=== PATIENT | female | born 1955 | race Hispanic/Latino ===

== ENCOUNTER 2017-12-23 06:17 | Day surgery (SDC) | payer BC ==
[2017-12-19 08:01] VITALS: BMI 34.9
[2017-12-23] MEDS ORDERED: Lidocaine 2% Inj (20ml) ONE (06:47)
[2017-12-23] MEDS ORDERED: Midazolam 2 MG/2 ML VIAL ONE ×2 (06:47→07:18)
[2017-12-23] MEDS ORDERED: Phenylephrine 10 mg/ml Inj ONE (06:47)
[2017-12-23] MEDS ORDERED: Iodixanol 320 MG/ML 100 ML BOTTLE IV ONE (06:48)
[2017-12-23] MEDS ORDERED: Iodixanol 320 MG/ML 200 ML BOTTLE IV ONE (06:48)
[2017-12-23] MEDS ORDERED: Iohexol 350mgl/ml 50 ML ONE (06:48)
[2017-12-23] MEDS ORDERED: Nitroglycerin 50mg in D5W 0 MG/0 ML BOTTLE IV ONE (06:49)
[2017-12-23 07:09] LABS: BASO # 0.05 K/mm3 (0.0-2.0); BASO % 0.6 % (0.0-3.0); EOS # 0.1 (0.0-0.7); EOS % 1.5 % (1.5-5.0); GRAN # 4.02 (1.4-6.5); HEMOGLOBIN 13.9 g/dL (12.0-16.0); LYMPH # 3.1 (1.2-3.4); LYMPH % 39.6 % (22.0-35.0); MEAN CELL VOLUME 90.8 fl (80.0-105.0); MEAN CORPUSCULAR HEMOGLOBIN 29.9 pg (25.0-35.0); MEAN CORPUSCULAR HGB CONC 32.9 g/dl (31.0-37.0); MEAN PLATELET VOLUME 9.6 fl (7.0-11.0); MONO # 0.6 (0.1-0.6); MONO % 7.3 % (1.0-6.0); RBC 4.65 10^6/uL (3.5-6.1); RED CELL DISTRIBUTION WIDTH 13.1 % (11.5-14.5); WHITE BLOOD COUNT 7.9 10^3/ul (4.5-11.0)
[2017-12-23 07:17] LABS: BLOOD UREA NITROGEN 21 mg/dL (7-21); CALCIUM 9.9 mg/dL (8.4-10.5); GFR AFRICAN-AMERICAN > 60; GFR NON-AFRICAN AMERICAN > 60
[2017-12-23 07:20] LABS: INR 0.98 (0.93-1.08); PROTHROMBIN TIME 11.3 SECONDS (9.4-12.5)
[2017-12-23] MEDS ORDERED: Famotidine 20mg/50ml 20 MG/50 ML BAG IVPB ONE (07:32)
[2017-12-23] MEDS ORDERED: DiphenhydrAMINE 50 mg/ml Inj ONE (07:32)
[2017-12-23 08:03] VITALS: TEMP 97.4
[2017-12-23] MEDS ORDERED: Nitroglycerin 50mg in D5W 50 MG/250 ML BOTTLE IV ONE (08:45)
[2017-12-23] MEDS ORDERED: Sodium Chloride 0.9% 1,000 ML IV SCH (09:45)
--- NOTE | 2017-12-23 10:16 | CARDCATH ---
PROCEDURE DATE: 12/23/2017 HISTORY: The patient is a 62-year-old woman, who presents with exertional shortness of breath and angina. Stress test was notable for marked shortness of breath with minimal exertion. Because of this, cardiac catheterization was recommended. PROCEDURE: Left heart catheterization with coronary arteriography and left ventriculogram. The right femoral artery was cannulated with a 6-Cypriot sheath. There were no complications. I performed moderate sedation, which included the presence of an independent trained observer that assisted in monitoring the patient's level of consciousness and physiologic status. After administration of Versed and fentanyl, my intra service time was 15 minutes. The findings on catheterization revealed a left ventricle that contracted normally. Estimated ejection fraction of 60%. The patient had a right dominant circulation. The RCA was free of significant disease. The left main artery was unremarkable. The circumflex artery and obtuse marginal branches revealed intimal irregularities without critical lesions. The LAD revealed intimal irregularities up to its midportion. From the midportion to the distal portion of the LAD, the LAD tapered with diffuse atherosclerosis with multiple 50-60% lesions throughout the distal portion. The patient tolerated the procedure well. In summary, the procedure revealed single-vessel CAD of the LAD. LV function is normal. Given these findings, the patient needs to undergo a strict cardiac risk reduction program. We will also advise that the patient undergo a pulmonary followup to rule out causes of her dyspnea. Kemal Merino MD
--- NOTE | 2017-12-23 10:32 | CARD ---
APPROVED REPORT EKG Measurement Heart [id number] <Conclusion> Atrial fibrillation with premature ventricular or aberrantly conducted complexes Abnormal ECG
[2017-12-23 13:08] VITALS: RESP 16; O2SAT 94
[2017-12-23 14:45] VITALS: BP 146/69; PULSE 101
== END 2017-12-23 16:00 | disposition home or self-care (01) ==
LOC: CATH 06:17
PROVIDERS: ATTEND Internal Medicine Cardiovascular Disease
DX: I25.110 Atherosclerotic heart disease of native coronary artery with unstable angina pectoris (principal); I10 Essential (primary) hypertension; I48.91 Unspecified atrial fibrillation; I42.9 Cardiomyopathy, unspecified
CPT/HCPCS: 36415; 80048; 85025; 85610; 85730; 86850; 86900; 93005; 93458; 99152; C1760; C1769; C2629; J1200; J1644; J2250; J2930; J3010; J7040; Q9966; Q9967

== ENCOUNTER 2017-12-27 11:49 | Observation (INO) | payer BC ==
[2017-12-27 11:50] VITALS: BMI 34.9
--- NOTE | 2017-12-27 12:40 | RAD ---
HISTORY: 62F, chest pain COMPARISON: No prior. FINDINGS: LUNGS: Bases suspect minor dependent/passive type atelectasis both lung bases PLEURA: No significant pleural effusion identified, no pneumothorax apparent. CARDIOVASCULAR: Heart appears mildly enlarged OSSEOUS STRUCTURES: No significant abnormalities. VISUALIZED UPPER ABDOMEN: Normal. OTHER FINDINGS: None. IMPRESSION: Suspect minor dependent/passive type atelectasis both lung
[2017-12-27] MEDS ORDERED: Morphine 2 mg/2 mL syringe IVP STA (12:50)
--- NOTE | 2017-12-27 12:55 | ED PDOC ---
Arrival/HPI - General Chief Complaint: Chest Pain Time Seen by Provider: 12/27/17 12:02 Historian: Patient - History of Present Illness Narrative History of Present Illness (Text): you were treated in the ED today for hx of chest blood clot in the past with xeralto use which was discontinued to to bleeding, cad, afib on eliquis, had cardiac cath 12/23/17 and now having right sided chest pain but otherwise without any nausea/vomiting/headache/dizziness/difficulty breathing/abdomen pain /numbness/tingling/loss of limb function/pain with urination. Time/Duration: 24 hours Symptom Course: Intermittent, Worsening Quality: Aching Severity Level: 2 Activities at Onset: Rest Context: Sitting Past Medical History - Provider Review Nursing Documentation Reviewed: Yes - Travel History Have you recently traveled outside [place] w/in the past 3 mons?: No - Infectious Disease Hx of Infectious Diseases: None - Reproductive Menopause: Yes - Cardiac Hx Hypertension: Yes Hx Pacemaker: No - Neurological Hx Paralysis: No - Hematological/Oncological Hx Blood Transfusions: No - Musculoskeletal/Rheumatological Hx Musculoskeletal Disorders: No - Psychiatric Hx Emotional Abuse: No Hx Physical Abuse: No Hx Substance Use: No - Anesthesia Hx Anesthesia Reactions: No Hx Malignant Hyperthermia: No - Suicidal Assessment Feels Threatened In Home Enviroment: No Family/Social History - Physician Review Nursing Documentation Reviewed: Yes Family/Social History: Unknown Family HX Smoking Status: Unknown If Ever Smoked Hx Alcohol Use: Yes (SOCIAL) Hx Substance Use: No Allergies/Home Meds Allergies/Adverse Reactions: Allergies Iodinated Contrast- Oral and IV Dye Allergy (Severe, Verified 12/23/17 07:18) RASH erythromycin base Adverse Reaction (Severe, Verified 12/19/17 08:01) VEIN BURNING DURING IV ADM Home Medications: Home Meds Medication Instructions Recorded Confirmed Apixaban [Eliquis] 5 mg PO BID 12/19/17 12/27/17 Aspirin [Ecotrin] 81 mg PO DAILY 12/19/17 12/27/17 Carvedilol [Coreg] 25 mg PO BID 12/19/17 12/27/17 Review of Systems - Review of Systems Constitutional: Normal Eyes: Normal ENT: Normal Respiratory: Normal Cardiovascular: Chest Pain Gastrointestinal: Normal Genitourinary Female: Normal Musculoskeletal: Normal Skin: Normal Neurological: Normal Endocrine: Normal Hemo/Lymphatic: Normal Psychiatric: Normal Physical Exam Vital Signs Reviewed: Yes Vital Signs Temp Pulse Resp BP Pulse Ox 12/27/17 14:00 88 18 115/89 98 12/27/17 12:03 98.3 F 95 H 20 123/96 H 98 12/27/17 11:56 98.4 F 94 H 17 123/96 H 97 Temperature: Afebrile Blood Pressure: Hypertensive Pulse: Regular Respiratory Rate: Normal Appearance: Positive for: Well-Appearing, Non-Toxic, Comfortable Pain Distress: None Mental Status: Positive for: Alert and Oriented X 3 - Systems Exam Head: Present: Atraumatic, Normocephalic Pupils: Present: PERRL Extroacular Muscles: Present: EOMI Conjunctiva: Present: Normal Ears: Present: Normal Mouth: Present: Moist Mucous Membranes Pharnyx: Present: Normal Nose (External): Present: Atraumatic Nose (Internal): Present: Normal Inspection Neck: Present: Normal Range of Motion Respiratory/Chest: Present: Clear to Auscultation, Good Air Exchange Cardiovascular: Present: Regular Rate and Rhythm Abdomen: No: Tenderness, Distention, Normal Bowel Sounds, Peritoneal Signs, Rebound, Guarding, McBurney's Point Tender, Rovsing's Sign Present, Hernias, Feeding Tubes, Ostomy Tubes, Mass/Organomegaly, Scars, Other Back: Present: Normal Inspection Upper Extremity: Present: Normal Inspection Lower Extremity: Present: Normal Inspection Neurological: Present: GCS=15, CN II-XII Intact, Speech Normal, Motor Func Grossly Intact Skin: Present: Warm, Normal Color Psychiatric: Present: Alert, Oriented x 3, Normal Insight, Normal Concentration Medical Decision Making ED Course and Treatment: you were treated in the ED today for hx of chest blood clot in the past with xeralto use which was discontinued to to bleeding, cad, afib on eliquis, had cardiac cath 12/23/17 and now having right sided chest pain but otherwise without any nausea/vomiting/headache/dizziness/difficulty breathing/abdomen pain /numbness/tingling/loss of limb function/pain with urination. You were otherwise breathing easily, smiling and talking easily, good strength/sensation , walking easily, clear lungs, no abdomen tenderness, no fever temp 98.4, stable heart rate 94, stable breathing rate 17, excellent oxygen level 97% room air, elevated blood pressure 123/96 which we recommend repeat in 2-3 days primary care office to determine further treatment, you have blood tests no infection count 10, stable blood level hemoglobin 12/platelets 237, stable chemistry, heart blood test negative less than 0.01, bnp mild 519, urine test___ _, chest xray radiology Suspect minor dependent/passive type atelectasis both lung, cta chest , ECG atrial fibrilliation, morphine, zofran,saline, observation done in the ED with improvement. 12/27/17 12:56 Chest X-ray Social Media Marketing Specialist : Jt Noyola MD Report Date : 12/27/2017 12:39:32 HISTORY:62F, chest pain COMPARISON:No prior. FINDINGS: LUNGS:Bases suspect minor dependent/passive type atelectasis both lung bases PLEURA:No significant pleural effusion identified, no pneumothorax apparent. CARDIOVASCULAR:Heart appears mildly enlarged OSSEOUS STRUCTURES:No significant abnormalities. VISUALIZED UPPER ABDOMEN:Normal. OTHER FINDINGS:None. IMPRESSION: Suspect minor dependent/passive type atelectasis both lung 12/27/2017 15:[address] IMPRESSION: No evidence of acute central pulmonary embolus. Cardiomegaly. There is also small amount of fluid seen within the superior pericardial recess as well as adjacent to the aortic arch extending anteriorly into the cleft between the ascending thoracic aorta and pulmonary trunk. Mild bibasilar atelectasis right greater than left. 2 tiny parenchymal nodules left lung apex. Follow-up CT scan chest in 6 months could be performed to assess stability. Dictator: Jt Ivey DO 12/27/17 16:14 d/w Dr. Sheridan who stated can admit to telemetry with Dr. Flores cardiology consultation. Reassessment Condition: Re-examined, Improved - Lab Interpretations Lab Results: 12/27/17 13:00 12/27/17 13:00 Lab Results 12/27/17 13:00: Sodium 143, Potassium 4.1, Chloride 104, Carbon Dioxide 30, Anion Gap 14, BUN 14, Creatinine 1.0, Est GFR ( Amer) > 60, Est GFR (Non- Af Amer) 56, Random Glucose 89, Calcium 9.6, Magnesium 1.9, Total Bilirubin 0.6 , AST 27, ALT 17, Alkaline Phosphatase 104, Lactate Dehydrogenase 440, Total Creatine Kinase 84, Troponin I < 0.01, NT-Pro-B Natriuret Pep 519 H, Total Protein 7.0, Albumin 3.9, Globulin 3.1, Albumin/Globulin Ratio 1.3 12/27/17 13:00: PT 12.7 H, INR 1.10 H, APTT 31.2 12/27/17 13:00: WBC 10.6 D, RBC 4.40, Hgb 12.9, Hct 39.8, MCV 90.5, MCH 29.3, MCHC 32.4, RDW 12.8, Plt Count 237, MPV 10.1, Gran % 64.4, Lymph % (Auto) 22.3, [place] % (Auto) 11.6 H, Eos % (Auto) 1.2 L, Baso % (Auto) 0.5, Gran # 6.80 H, Lymph # (Auto) 2.4, [place] # (Auto) 1.2 H, Eos # (Auto) 0.1, Baso # (Auto) 0.05 I have reviewed the lab results: Yes - RAD Interpretation Radiology Orders: 12/27/17 12:07 CHEST PORTABLE [RAD] Stat 12/27/17 14:03 ANGIO CHEST PE PROTOCOL [CT] Stat Paper Baling Machine Operator: Radiologist (see mdm) - EKG Interpretation Interpreted by ED Physician: Yes (afib) Type: 12 lead EKG Comparison: Similar to previous EKG (similar to 12/23/17) - Medication Orders Current Medication Orders: Sodium Chloride (Sodium Chloride 0.9%) 1,000 mls @ 100 mls/hr IV .Q10H REX Last Admin: 12/27/17 15:36 Dose: 100 mls/hr eMAR Start Stop Document 12/27/17 15:36 EWO (Rec: 12/27/17 15:36 [facility] [id number]) Intravenous Solution Start Date 12/27/17 Start Time 15:36 Discontinued Medications Morphine Sulfate (Morphine) 2 mg IVP STAT STA Stop: 12/27/17 12:51 Last Admin: 12/27/17 13:19 Dose: 2 mg IVP Administration Document 12/27/17 13:19 EWO (Rec: 12/27/17 13:19 [facility] [id number]) Charges for Administration # of IVP Administrations 1 Morphine Sulfate (Morphine) 4 mg IVP STAT STA Stop: 12/27/17 14:05 Last Admin: 12/27/17 15:46 Dose: 4 mg MAR Pain Assessment Document 12/27/17 15:46 EWO (Rec: 12/27/17 15:47 EWO [id number]) Pain Reassessment Is this a pain reassessment? No IVP Administration Document 12/27/17 15:46 EWO (Rec: 12/27/17 15:47 EWO [id number]) Charges for Administration # of IVP Administrations 2 Ondansetron HCl (Zofran Inj) 4 mg IVP STAT STA Stop: 12/27/17 12:51 Last Admin: 12/27/17 13:19 Dose: 4 mg IVP Administration Document 12/27/17 13:19 EWO (Rec: 12/27/17 13:19 EWO [id number]) Charges for Administration # of IVP Administrations 1 Ondansetron HCl (Zofran Inj) 4 mg IVP STAT STA Stop: 12/27/17 14:05 Last Admin: 12/27/17 15:47 Dose: 4 mg IVP Administration Document 12/27/17 15:47 EWO (Rec: 12/27/17 15:47 EWO [id number]) Charges for Administration # of IVP Administrations 2 - Scribe Statement The provider has reviewed the documentation as recorded by the [place] Provider Scribe Attestation: All medical record entries made by the Scribe were at my direction and personally dictated by me. I have reviewed the chart and agree that the record accurately reflects my personal performance of the history, physical exam, medical decision making, and the department course for this patient. I have also personally directed, reviewed, and agree with the discharge instructions and disposition. Disposition/Present on Arrival - Present on Arrival Any Indicators Present on Arrival: No History of DVT/PE: No History of Uncontrolled Diabetes: No Urinary Catheter: No History of Decub. Ulcer: No History Surgical Site Infection Following: None - Disposition Have Diagnosis and Disposition been Completed?: Yes Diagnosis: Chest pain Disposition: HOSPITALIZED Disposition Time: 16:17 Patient Plan: Admission, Telemetry Condition: IMPROVED
[2017-12-27 13:07] LABS: BASO # 0.05 K/mm3 (0.0-2.0); BASO % 0.5 % (0.0-3.0); EOS # 0.1 (0.0-0.7); EOS % 1.2 % (1.5-5.0); GRAN # 6.8 (1.4-6.5); GRAN % 64.4 % (50.0-68.0); HEMOGLOBIN 12.9 g/dL (12.0-16.0); LYMPH # 2.4 (1.2-3.4); LYMPH % 22.3 % (22.0-35.0); MEAN CELL VOLUME 90.5 fl (80.0-105.0); MEAN CORPUSCULAR HEMOGLOBIN 29.3 pg (25.0-35.0); MEAN CORPUSCULAR HGB CONC 32.4 g/dl (31.0-37.0); MEAN PLATELET VOLUME 10.1 fl (7.0-11.0); MONO # 1.2 (0.1-0.6); MONO % 11.6 % (1.0-6.0); RBC 4.4 10^6/uL (3.5-6.1); RED CELL DISTRIBUTION WIDTH 12.8 % (11.5-14.5); WHITE BLOOD COUNT 10.6 10^3/ul (4.5-11.0)
[2017-12-27 13:21] LABS: ALB/GLOB RATIO 1.3 (1.1-1.8); ALBUMIN 3.9 g/dL (3.0-4.8); ALT/SGPT 17 U/L (7-56); AST/SGOT 27 U/L (14-36); BLOOD UREA NITROGEN 14 mg/dL (7-21); CALCIUM 9.6 mg/dL (8.4-10.5); GFR AFRICAN-AMERICAN > 60; GFR NON-AFRICAN AMERICAN 56
[2017-12-27 13:24] LABS: INR 1.1 (0.93-1.08); PROTHROMBIN TIME 12.7 SECONDS (9.4-12.5)
[2017-12-27 13:25] LABS: PARTIAL THROMBOPLASTIN TIME 31.2 Seconds (25.1-36.5)
[2017-12-27 13:29] LABS: B-TYPE NATRIURETIC PEPTIDE 519 pg/mL (0-450); TROPONIN I < 0.01 ng/mL
[2017-12-27] MEDS ORDERED: Morphine 4 mg/ml ISec IVP STA (14:04)
[2017-12-27] MEDS ORDERED: Sodium Chloride 0.9% 1,000 ML IV SCH (14:15)
[2017-12-27] MEDS ORDERED: Iohexol 350 MG/100 ML VIAL ONE (14:19)
--- NOTE | 2017-12-27 15:34 | CT ---
PROCEDURE: CT Chest with contrast (Pulmonary Angiogram) HISTORY: 62f, chest pain , please eval PE. COMPARISON: None available. TECHNIQUE: Axial computed tomography images were obtained of the chest in the pulmonary arterial phase of enhancement. Coronal and sagittal reformatted images were created and reviewed. Intravenous contrast dose: 100 cc Omnipaque 350 Radiation dose: Total exam DLP = mGy-cm. This CT exam was performed using one or more of the following dose reduction techniques: Automated exposure control, adjustment of the mA and/or kV according to patient size, and/or use of iterative reconstruction technique. FINDINGS: PULMONARY ARTERIES: The visualized pulmonary trunk, right and left main, lobar, segmental and proximal subsegmental branches of the pulmonary arteries are well opacified with no definitive evidence of filling defects seen to suggest acute central pulmonary embolus. Pulmonary trunk measures approximately 2.86 cm. AORTA: No acute findings. No thoracic aortic aneurysm. Ascending thoracic aorta measures approximately 3.76 cm and descending thoracic aorta measures approximately 2.85 cm. No evidence of aortic dissection. There is a small amount of fluid seen within the superior pericardial recess as well as adjacent to the aortic arch extending anteriorly into the cleft between the ascending thoracic aorta and pulmonary trunk. LUNGS: Mild atelectasis seen both posterior lower lung zones right greater than left. No evidence of focal consolidation. There are no parenchymal masses. Small proximally 2.7 mm nodule left posterolateral lung apex the nearly bordering the pleural surface best seen on axial series 4 axial image number 35. There is another very tiny approximately 2 mm subpleural nodular density left lateral upper lung field seen on axial image number 38. PLEURAL SPACES: Unremarkable. No effusion or pneumothorax. HEART: Heart is enlarged. . LYMPH NODES: There is an approximately 14 mm elliptical shaped lymph node in the left AP window region. . Few smaller on nonspecific mediastinal lymph nodes are present. No significant hilar adenopathy. There is a small to medium size hiatal hernia with wall thickening of the distal esophagus likely due to protrusion gastric mucosa. Possibility of esophagitis or other intrinsic/invasive wall lesion not excluded clinical correlation recommended BONES, CHEST WALL: Mild multilevel degenerative spondylosis of the thoracic spine. No acute compression fractures nor retropulsed fragments. Intradiscal calcifications seen in the lower thoracic region OTHER FINDINGS: Unremarkable. IMPRESSION: No evidence of acute central pulmonary embolus. . Cardiomegaly. There is also small amount of fluid seen within the superior pericardial recess as well as adjacent to to the aortic arch extending anteriorly into the cleft between the ascending thoracic aorta and pulmonary trunk. . Mild bibasilar atelectasis right greater than left. 2 tiny parenchymal nodules left lung apex. Followup CT scan chest in 6 months could be performed to assess stability.
[2017-12-27] MEDS: Naproxen 275 mg Tab PO SCH (18:41)
[2017-12-27 22:22] LABS: URINE BILIRUBIN NEGATIVE (NEGATIVE); URINE BLOOD TRACE-LYSED (NEGATIVE); URINE GLUCOSE (UA) NEGATIVE (NEGATIVE); URINE LEUKOCYTE ESTERASE NEGATIVE Leu/uL (NEGATIVE); URINE PROTEIN NEGATIVE mg/dL (<30 mg/dL); URINE UROBILINOGEN 0.2 E.U./dL (<1 E.U./dL)
[2017-12-27 22:24] LABS: URINE APPEARANCE SLIGHT-CLOUDY (CLEAR); URINE COLOR LIGHT YELLOW (YELLOW)
[2017-12-27 22:27] LABS: URINE RBC 0 - 2 /hpf (0-2)
[2017-12-27 22:28] LABS: URINE BACTERIA SMALL (NEG)
[2017-12-28 01:17] VITALS: RESP 20
[2017-12-28 05:31] VITALS: TEMP 97.7; O2SAT 97
[2017-12-28] MEDS ORDERED: Pantoprazole 40 mg EC Tab PO SCH (06:00)
--- NOTE | 2017-12-28 08:58 | CARD ---
APPROVED REPORT EKG Measurement Heart [id number] <Conclusion> Atrial fibrillation with rapid ventricular response with premature ventricular or aberrantly conducted complexes Abnormal ECG
[2017-12-28] MEDS: Naproxen 275 mg Tab PO SCH (10:48)
[2017-12-28 10:51] VITALS: BP 134/77; PULSE 85
--- NOTE | 2017-12-28 11:36 | CP.PCM.CON ---
History of Present Illness - History of Present Illness History of Present Illness: Lying in bed, sleeping but easily awaken, denies shortness of breath, pain at right side of chest especially with movement Reason for consultation: cardiac evaluation,shortness of breath, CHF, hypertension, hypercholesterolemia,Atrial fibrillation on Eliquis, history of marijuana. Brief history of present illness: A 62 year old female who came in to the ER due to complaining of right chest pain radiating to right scapula describe as sharp and shooting.Pain more upon movement and deep breathing. History of non obstructive coronary artery disease, CHF, hypertension, hypercholesterolemia, Atrial fibrillation on Eliquis, history of marijuana. Seen and examined by me and Dr. Flores (covering Dr. Merino) Review of Systems - Cardiovascular Additional comments: right chest pain radiating to right scapular - Respiratory Additional comments: denies shortness breath - Genitourinary Additional comments: continent Past Patient History - Infectious Disease Hx of Infectious Diseases: None - Past Social History Smoking Status: Never Smoked - CARDIAC Hx Cardiac Disorders: Yes Hx Angina: Yes Hx Atrial Fibrillation: Yes Hx Cardia Arrhythmia: Yes Hx Circulatory Problems: No Hx Congestive Heart Failure: Yes Hx Heart Murmur: No Hx Heart Transplant: No Hx Hypercholesterolemia: Yes Hx Hypertension: Yes Hx Internal Defibrillator: No Hx Mitral Valve Prolapse: No Hx Pacemaker: No Hx Peripheral Edema: No Hx Peripheral Vascular Disease: No - PULMONARY Hx Respiratory Disorders: No Hx Asthma: No Hx Bronchitis: No Hx Chronic Obstructive Pulmonary Disease (COPD): No Hx Emphysema: No Hx Pneumonia: No Hx Respiratory Aspiration: No Hx Respiratory Tract Infection: No Hx Sleep Apnea: No Hx Tuberculosis: No - NEUROLOGICAL Hx Neurological Disorder: No Hx Alzheimer's Disease: No HX Cerebrovascular Accident: No Hx Dementia: No Hx Dizziness: No Hx Meningitis: No Hx Migraine: No Hx Parkinson's Disease: No Hx Seizures: No Hx Transient Ischemic Attacks (TIA): No - HEENT Hx HEENT Problems: No Hx Blind: No Hx Cataracts: No Hx Deafness: No Hx Difficulty Chewing: No Hx Epistaxis: No Hx Glaucoma: No Hx Macular Degeneration: No - RENAL Hx Chronic Kidney Disease: No Hx Dialysis: No Hx Kidney Stones: No Hx Neurogenic Bladder: No Hx Pyelonephritis: No Hx Renal (Kidney) Cancer: No Hx Renal Failure: No - ENDOCRINE/METABOLIC Hx Endocrine Disorders: No Hx Adrenal Cancer: No Hx Diabetes Insipidus: No Hx Diabetes Mellitus Type 1: No Hx Diabetes Mellitus Type 2: No Hx Hyperthyroidism: No Hx Hypothyroidism: No Hx Systemic Lupus Erythematosus: No - HEMATOLOGICAL/ONCOLOGICAL Hx Blood Disorders: No Hx AIDS: No Hx Anemia: No Hx Cancer: No Hx Chemotherapy: No Hx Cirrhosis: No Hx Hemophilia: No Hx Hepatitis A: No Hx Hepatitis B: No Hx Hepatitis C: No Hx Human Immunodeficiency Virus (HIV): No Hx Metastesis: No Hx Shingles: No Hx Sickle Cell Disease: No Hx Unexplained Bleeding: No - INTEGUMENTARY Hx Dermatological Problems: No Hx Basil Cell: No Hx Eczema: No Hx Melanoma: No Hx Psoriasis: No Hx Squamous Cell: No - MUSCULOSKELETAL/RHEUMATOLOGICAL Hx Musculoskeletal Disorders: No Hx Arthritis: No Hx Back Pain: No Hx Degenerative Joint Disease: No Hx Falls: No Hx Fractures: No Hx Gout: No Hx Herniated Disk: No Hx Myasthenia Gravis: No Hx Osteoarthritis: No Hx Osteomyelitis: No Hx Osteoporosis: No Hx Rhabdomyolysis: No Hx Spinal Stenosis: No Hx Unsteady Gait: No - GASTROINTESTINAL Hx Gastrointestinal Disorders: No Hx Colostomy: No Hx Crohn's Disease: No Hx Diverticulitis: No Hx Gall Bladder Disease: No Hx Gastroesophageal Reflux: No Hx Ileostomy: No Hx Liver Failure: No Hx Pancreatitis: No HX Swallowing Problems: No Hx Ulcer: No - GENITOURINARY/GYNECOLOGICAL Hx Genitourinary Disorders: No Hx Hematuria: No Hx Incontinence: No Hx Sexually Transmitted Disorders: No Hx Urinary Tract Infection: No - PSYCHIATRIC Hx Psychophysiologic Disorder: No Hx Anxiety: No Hx Bipolar Disorder: No Hx Depression: No Hx Emotional Abuse: No Hx Hallucinations: No Hx Panic Symptoms: No Hx Paranoia: No Hx Post Traumatic Stress Disorder: No Hx Psychosis: No Hx Physical Abuse: No Hx Schizophrenia: No Hx Sexual Abuse: No Hx Substance Use: Yes (marijuana) - SURGICAL HISTORY Hx Surgeries: No Hx Amputation: No Hx Appendectomy: No Hx Cardiac Catheterization: Yes (12/23/17) Hx Cholecystectomy: No Hx Coronary Stent: No Hx Gastric Bypass Surgery: No Hx Hysterectomy: No Hx Joint Replacement: No Hx Kidney Transplant: No Hx Liver Transplant: No Hx Mastectomy: No Hx Musculoskeletal Surgery: No Hx Open Heart Surgery: No Hx Orthopedic Surgery: No Hx Splenectomy: No Hx Valve Replacement: No - ANESTHESIA Hx Anesthesia Reactions: No Hx Malignant Hyperthermia: No Meds Allergies/Adverse Reactions: Allergies Allergy/AdvReac Type Severity Reaction Status Date / Time Iodinated Contrast- Oral and Allergy Severe RASH Verified 12/23/17 07:18 IV Dye erythromycin base AdvReac Severe VEIN Verified 12/19/17 08:01 BURNING DURING IV ADM - Medications Medications: Current Medications Apixaban (Eliquis) 5 mg PO BID [facility] PRN Reason: Protocol Last Admin: 12/28/17 10:48 Dose: 5 mg Aspirin (Ecotrin) 81 mg PO DAILY [facility] Last Admin: 12/28/17 10:48 Dose: 81 mg Carvedilol (Coreg) 25 mg PO BID [facility] Last Admin: 12/28/17 10:48 Dose: 25 mg Naproxen (Anaprox) 275 mg PO BID [facility] Last Admin: 12/28/17 10:48 Dose: 275 mg Pantoprazole Sodium (Protonix Ec Tab) 40 mg PO 0600 [facility] Last Admin: 12/28/17 05:17 Dose: 40 mg Physical Exam - Constitutional Appears: No Acute Distress - Head Exam Head Exam: NORMOCEPHALIC - Eye Exam Eye Exam: Normal appearance - ENT Exam ENT Exam: Mucous Membranes Moist - Respiratory Exam Respiratory Exam: Clear to Auscultation Bilateral, NORMAL BREATHING PATTERN - Cardiovascular Exam Cardiovascular Exam: +S1, +S2 Additional comments: afib,controlled rate right chest pain when moving radiating to right scapula - GI/Abdominal Exam GI & Abdominal Exam: Normal Bowel Sounds, Soft - Extremities Exam Extremities exam: Positive for: normal capillary refill - Neurological Exam Neurological exam: Alert, Oriented x3 - Psychiatric Exam Psychiatric exam: Normal Affect, Normal Mood - Skin Skin Exam: Intact, Normal Color Results - Vital Signs Recent Vital Signs: Last Vital Signs Temp 97.7 F 12/28/17 05:30 Pulse 85 12/28/17 10:48 Resp 20 12/28/17 05:30 BP 134/77 12/28/17 10:48 Pulse Ox 97 12/28/17 05:30 - Labs Result Diagrams: 12/27/17 13:00 12/27/17 13:00 Labs: Laboratory Results - last 24 hr 12/27/17 12/27/17 18:55 22:12 Troponin I < 0.01 Urine Color Light yellow Urine Appearance Slight-cloudy Urine pH 6.0 Ur Specific [place] 1.020 Urine Protein Negative Urine Glucose (UA) Negative Urine Ketones Negative Urine Blood Trace-lysed H Urine Nitrate Positive H Urine Bilirubin Negative Urine Urobilinogen 0.2 Ur Leukocyte Esterase Negative Urine RBC 0 - 2 Urine WBC 1 - 3 Ur Epithelial Cells 1 - 3 Urine Bacteria Small Assessment & Plan - Assessment and Plan (Free Text) Assessment: A 62 year old female who came in to the ER due to complaining of right chest pain radiating to right scapula describe as sharp and shooting.Pain more upon movement and deep breathing. History of CHF,hypertension,non obstructive coronary artery disease hypercholesterolemia,Atrial fibrillation on Eliquis, history of marijuana. Review of previos cardiac work up: 12/15/17-Normal Stress test 12/15/17- ECHO- Dilated LA, Mild TR, Mild LVH, LVEF 59% 12/23/17- Cardiac catheterization: LVEF 60% Diffuse LAD- 50-60% Plan: Atypical chest pain, musculoskeletal related pain Previous recent cardiac cath, non obstructive coronary artery disease (LAD 50-60%) LVEF 60 % Troponin levels normal Atrial fibrillation, controlled rate on Eliquis Started on Naproxen yesterday with relief Continue current medications May discharge home Follow up with Dr. Kemal Merino Thank you for the opportunity to take care of MsPeter Corrina Timothy
--- NOTE | 2017-12-28 22:01 | HP ---
HISTORY OF PRESENT ILLNESS: The patient is 62-year-old, states she was having right-sided chest pain going on intermittently for couple of weeks. Initially, she ignored. She came to the emergency room because of increasing chest pain. The patient had recently cardiac cath done by Dr. Merino on 12/24/2017 and was unremarkable except LAD that was 50% to 60%. The patient is admitted, given Naprosyn and Protonix, started to improve and will be discharged today. PAST MEDICAL HISTORY: Significant for. 1. Hypertension. 2. History of DVT. 3. History of pulmonary embolism since 2013, she has been on anticoagulant. ALLERGIES: SHE IS ALLERGIC TO IODINATED CONTRAST, ORAL AND IV DYE, AND ERYTHROMYCIN BASED. MEDICATIONS AT HOME: 1. She is on Percocet as needed. 2. She is on Coreg 25 twice a day. 3. Aspirin 81 daily. 4. Eliquis 5 mg twice a day. 5. Naprosyn 275 b.i.d. SOCIAL HISTORY: Denies smoking or drinking. Uses marijuana once in a while to relax and socially drinks. PHYSICAL EXAMINATION: GENERAL: When I examined the patient, she is totally asymptomatic, doing well, anxious to go home. She is awake, alert, oriented, communicative. VITAL SIGNS: She is afebrile, pulse 85, respirations 20, blood pressure 130/77. LUNGS: Bilateral good airflow. No rhonchi or crackle. HEART: S1 and S2 audible. ABDOMEN: Soft, nontender. No rebound. No guarding. NEUROLOGIC: The patient is awake, alert, oriented, communicative. LABORATORY DATA: WBC is 10.6, hemoglobin 12.9, hematocrit 39.8, platelets of 237. PT 12.7, INR 1.1. Chemistries: Sodium 143, potassium 4.1, chloride 104, CO2 of 30, BUN 14, creatinine 1, blood sugar of 89. LFTs are within normal limits. BNP is 519. Urine shows positive nitrites, negative leukocyte esterase. EKG shows AFib. CT scan of the chest except minimal pericardial effusion is otherwise unremarkable. ASSESSMENT: 1. Noncardiac chest pain. 2. Hypertension. 3. Nonocclusive coronary artery disease. 4. Atrial fibrillation. PLAN: The patient will be discharged home on Naprosyn 500 twice a day intermittently as needed and Percocet as a backup as needed. She will follow up with her primary care doctor, Dr. Glaser, and she will resume her medications including Eliquis, aspirin, and carvedilol. Suzanne Sheridan MD
== END 2017-12-28 11:49 | disposition home or self-care (01) ==
LOC: ED 11:49 → ERH 15:51 → 2RNO 16:39
PROVIDERS: ADMIT Internal Medicine; ATTEND Internal Medicine
DX: R07.89 Other chest pain (principal); I25.10 Atherosclerotic heart disease of native coronary artery without angina pectoris; I48.91 Unspecified atrial fibrillation; I11.0 Hypertensive heart disease with heart failure; I50.9 Heart failure, unspecified; F12.90 Cannabis use, unspecified, uncomplicated; E78.00 Pure hypercholesterolemia, unspecified; Z79.01 Long term (current) use of anticoagulants; Z79.82 Long term (current) use of aspirin; Z86.718 Personal history of other venous thrombosis and embolism; Z86.711 Personal history of pulmonary embolism
CPT/HCPCS: 71045; 71275; 80053; 81001; 82550; 83615; 83735; 83880; 84484; 85025; 85610; 85730; 87086; 93005; 96374; 96375; 96376; 99285; G0378; J2270; J2405; J7040; Q9967